=== PATIENT | female | born 1975 | race Caucasian/White ===

== ENCOUNTER 2017-03-01 10:54 | Emergency (ER) | payer OTHER ==
--- NOTE | 2017-03-01 12:24 | C.PDOC ---
History Of Present Illness 41 year old female was brought to the ED by EMS with complaints of right sided neck pain and left knee pain, status post slipping and falling at work one hour prior to arrival. Patient was walking after the incident and denies head trauma , weakness, numbness, or urinary symptoms. Time Seen by Provider: 03/01/17 11:26 Chief Complaint (Nursing): Lower Extremity Problem/Injury History Per: Patient History/Exam Limitations: no limitations Onset/Duration Of Symptoms: Hrs (1 hour [employer]) Current Symptoms Are (Timing): Still Present Quality Of Discomfort: "Pain" Previous Symptoms: None Associated Symptoms: None Exacerbating Factor(s): Movement Recent travel outside of the [place]: No Additional History Per: EMS Past Medical History Reviewed: Historical Data, Nursing Documentation, Vital Signs Vital Signs: Last Vital Signs Temp 97.5 F L 03/01/17 13:00 Pulse 97 H 03/01/17 13:00 Resp 18 03/01/17 13:00 BP 132/84 03/01/17 13:00 Pulse Ox 96 03/01/17 13:11 Family History: States: Unknown Family Hx - Social History Hx Tobacco Use: No Hx Alcohol Use: No Hx Substance Use: No - Immunization History Hx Tetanus Toxoid Vaccination: No Hx Influenza Vaccination: No Hx Pneumococcal Vaccination: No Review Of Systems Constitutional: Negative for: Fever Genitourinary: Negative for: Dysuria, Incontinence Musculoskeletal: Positive for: Neck Pain (right sided neck pain ), Leg Pain ( left knee pain ) Neurological: Negative for: Weakness, Numbness Physical Exam - Physical Exam Appears: Non-toxic, No Acute Distress Skin: Warm, Dry, No Rash Head: Atraumatic, Normacephalic Eye(s): bilateral: Normal Inspection, PERRL, EOMI Oral Mucosa: Moist Neck: No Midline Cervical Tenderness, Paracervical Tenderness (right paracervical tenderness ), Supple Chest: Symmetrical, No Tenderness Cardiovascular: Rhythm Regular, No Murmur Respiratory: No Rales, No Rhonchi, No Wheezing, Other (clear to auscultation bilaterally ) Back: No CVA Tenderness, No Vertebral Tenderness, No Paraspinal Tenderness Extremity: Normal ROM, Tenderness (left knee anterior tenderness ), No Calf Tenderness, Capillary Refill (good capillary refill, less than two seconds ), No Deformity, No Swelling Neurological/Psych: Oriented x3, Normal Motor, Normal Sensation Gait: Steady ED Course And Treatment O2 Sat by Pulse Oximetry: 96 (RA ) Pulse Ox Interpretation: Normal - Other Rad Left knee X-ray X-Ray: Viewed By Me, Read By Radiologist Interpretation: Negative. - CT Scan/US Cervical CT Other Rad Studies (CT/US): Read By Radiologist, Radiology Report Reviewed CT/US Interpretation: FINDINGS: VERTEBRAE: Vertebral bodies maintained in height. The transverse processes and posterior elements are intact. Normal alignment is maintained. There is straightening of the normal lordotic curvature indicating possible muscular spasm. Please correlate. The atlantoaxial articulation and odontoid process are intact. DISCS/SPINAL CANAL/ NEURAL FORAMINA: There is narrowing of the C5-6 intervertebral disc space with a disc/ ridge complex and moderate central spinal stenosis. There is moderate/ severe neural foraminal stenosis bilaterally at C5-6. The remaining intervertebral disc spaces are maintained in height. PARASPINAL SOFT TISSUES: Unremarkable. OTHER FINDINGS: None. IMPRESSION: No evidence of fracture or dislocation. Possible muscular spasm. Degenerative disc disease at C5-6 with disc/ridge complex and moderate central spinal stenosis as well as moderate/ severe bilateral neural foraminal stenosis. Progress Note: Cervical CT scan and left knee X-Ray was ordered. Patient was given Motrin. Medical Decision Making Medical Decision Making: On re-exam, the patient reports improvement of symptoms. Abdomen is soft, non- tender and patient is tolerating PO well. Lungs are CTA, heart is RRR. Ambulatory in the ED with steady gait. Follow up with the medical doctor within 1-2 days. Return if worsened. Disposition - Disposition Referrals: Martir Lane MD [Staff Provider] - Disposition: HOME/ ROUTINE Disposition Time: 12:44 Condition: GOOD Additional Instructions: Follow up with the medical doctor within 1-2 days. Return if worsened. Prescriptions: Cyclobenzaprine [Cyclobenzaprine HCl] 10 mg PO BID #14 tab Naproxen [Naprosyn] 500 mg PO BID #20 tab Instructions: Cervical Strain (DC), Knee Sprain (ED) Forms: [employer] (Eritrean), Work Excuse Print Language: SAMMARINESE - Clinical Impression Clinical Impression: Knee sprain, Cervical strain - PA / ARMATURE CONNECTOR / Resident Statement MD/DO has reviewed & agrees with the documentation as recorded. - Scribe Statement The provider has reviewed the documentation as recorded by the Scribe Talisha Blount All medical record entries made by the Waylon were at my direction and personally dictated by me. I have reviewed the chart and agree that the record accurately reflects my personal performance of the history, physical exam, medical decision making, and the department course for this patient. I have also personally directed, reviewed, and agree with the discharge instructions and disposition.
--- NOTE | 2017-03-01 12:35 | CT ---
PROCEDURE: CT Cervical Spine without contrast HISTORY: Fall. Pain. COMPARISON: None available. TECHNIQUE: Axial computed tomography images were obtained of the cervical spine without the use of intravenous contrast. Coronal and sagittal reformatted images were created and reviewed. Radiation dose: Total exam DLP = 461.98 mGy-cm. This CT exam was performed using one or more of the following dose reduction techniques: Automated exposure control, adjustment of the mA and/or kV according to patient size, and/or use of iterative reconstruction technique. FINDINGS: VERTEBRAE: Vertebral bodies maintained in height. The transverse processes and posterior elements are intact. Normal alignment is maintained. There is straightening of the normal lordotic curvature indicating possible muscular spasm. Please correlate. The atlantoaxial articulation and odontoid process are intact. DISCS/SPINAL CANAL/NEURAL FORAMINA: There is narrowing of the C5-6 intervertebral disc space with a disc/ ridge complex and moderate central spinal stenosis. There is moderate/severe neural foraminal stenosis bilaterally at C5-6. The remaining intervertebral disc spaces are maintained in height. PARASPINAL SOFT TISSUES: Unremarkable. OTHER FINDINGS: None. IMPRESSION: No evidence of fracture or dislocation. Possible muscular spasm. Degenerative disc disease at C5-6 with disc/ridge complex and moderate central spinal stenosis as well as moderate/severe bilateral neural foraminal stenosis.
[2017-03-01 13:04] VITALS: BP 132/84; PULSE 97; RESP 18; TEMP 97.5
[2017-03-01 13:12] VITALS: O2SAT 96
--- NOTE | 2017-03-01 13:47 | RAD ---
PROCEDURE: Left Knee Radiographs. HISTORY: Pain. COMPARISON: None. FINDINGS: BONES: Normal. No fracture. JOINTS: Limited medial femorotibial compartment joint space narrowing is appreciate compatible with limited degenerative joint disease. JOINT EFFUSION: None. OTHER FINDINGS: None. IMPRESSION: No acute fracture, dislocation or destructive bony lesion appreciated. Limited degenerative joint disease is identified as discussed above.
== END 2017-03-01 13:05 | disposition home or self-care (01) ==
LOC: C.ER 10:54
DX: S16.1XXA Strain of muscle, fascia and tendon at neck level, initial encounter (principal); S83.92XA Sprain of unspecified site of left knee, initial encounter; W01.0XXA Fall on same level from slipping, tripping and stumbling without subsequent striking against object, initial encounter; Y93.01 Activity, walking, marching and hiking; Y92.89 Other specified places as the place of occurrence of the external cause; Y99.0 Civilian activity done for income or pay

== ENCOUNTER 2017-10-16 10:04 | Emergency (ER) | payer OTHER ==
[2017-10-16 10:12] VITALS: BP 123/84; PULSE 87; RESP 18; TEMP 98.7; O2SAT 100
[2017-10-16] MEDS ORDERED: Naproxen 550 mg Tab PO STA (11:25)
--- NOTE | 2017-10-16 11:27 | C.PDOC ---
History Of Present Illness 42-year-old female presents to the emergency department with complaints of a sore throat and right ear pain that started one week ago. Patient denies rash, nausea/vomiting, neck pain, recent travel or sick contacts. Time Seen by Provider: 10/16/17 10:19 Chief Complaint (Nursing): ENT Problem History Per: Patient History/Exam Limitations: None Current Symptoms Are (Timing): Still Present Symptoms Have Been: Continuous Severity: Mild Past Medical History Reviewed: Historical Data, Nursing Documentation, Vital Signs Vital Signs: Last Vital Signs Temp 98.7 F 10/16/17 10:10 Pulse 87 10/16/17 10:10 Resp 18 10/16/17 10:10 BP 123/84 10/16/17 10:10 Pulse Ox 100 10/16/17 22:03 - Medical History PMH: No Chronic Diseases Family History: States: No Known Family Hx - Social History Hx Tobacco Use: No Hx Alcohol Use: No Hx Substance Use: No - Immunization History Hx Tetanus Toxoid Vaccination: No Hx Influenza Vaccination: No Hx Pneumococcal Vaccination: No Review Of Systems Constitutional: Negative for: Fever, Chills ENT: Positive for: Ear Pain, Throat Pain. Negative for: Ear Discharge, Nose Discharge, Nose Congestion, Throat Swelling Respiratory: Negative for: Cough, Shortness of Breath, Sputum Gastrointestinal: Negative for: Nausea, Vomiting Skin: Negative for: Rash Physical Exam - Physical Exam Appears: Well, Non-toxic, No Acute Distress, Other (hoarse voice) Skin: Normal Color, Warm, Dry, No Rash Head: Normacephalic Eye(s): bilateral: Normal Inspection Ear(s): Left: Normal, Right: TM Erythema (bulging TM) Oral Mucosa: Moist Throat: Normal, No Erythema, No Exudate Neck: Supple Cardiovascular: Rhythm Regular Respiratory: Normal Breath Sounds, No Rales, No Rhonchi, No Wheezing Extremity: Normal ROM Neurological/Psych: Oriented x3 ED Course And Treatment O2 Sat by Pulse Oximetry: 100 (RA) Pulse Ox Interpretation: Normal Progress Note: Patient given PO Naprosyn. She is already on PO amoxicillin, was instructed to continue antibiotic. She was given Rxs for chloraseptic spray and Naprosyn, and was instructed to follow up with PMD/clinic in 1-2 days. She understands she should return to ED if symptoms worsen. Disposition Counseled Patient/Family Regarding: Studies Performed, Diagnosis, Need For Followup, Rx Given - Disposition Referrals: [facility] [Outside] Disposition: HOME/ ROUTINE Disposition Time: 11:25 Condition: STABLE Additional Instructions: CONTINUE YOUR AMOXICILLIN 500MG TWICE A DAY FOR 1 WEEK USE MEDICATIONS DIRECTED DRINK PLENTY OF FLUIDS RETURN TO EMERGENCY ROOM IF SYMPTOMS WORSEN CONTINE ALEX AMOXICILINA 500MG DOS VECES AL DA POR 1 SEMANA USE MEDICAMENTOS SEGN LO INDICADO BEBER MUCHO LQUIDO REGRESE AL ARI DE EMERGENCIA SI LOS SNTOMAS EMPEORAN Prescriptions: Naproxen 375 mg PO BID PRN #20 tablet PRN Reason: pain Phenol/Glycerin [Chloraseptic Max Fult[place]] 1 spray MM Q6 PRN #1 spray PRN Reason: THROAT PAIN Instructions: Ear Infections (Otitis Media) (DC) Forms: [employer] (Namibian) Print Language: KISWAHILI - Clinical Impression Clinical Impression: Right otitis media, Hoarseness of voice - Scribe Statement The provider has reviewed the documentation as recorded by the Scribe Holguin (Zunaira Ashraf) All medical record entries made by the Scribe were at my direction and personally dictated by me. I have reviewed the chart and agree that the record accurately reflects my personal performance of the history, physical exam, medical decision making, and the department course for this patient. I have also personally directed, reviewed, and agree with the discharge instructions and disposition.
[2017-10-16] MEDS ORDERED: Naproxen 550 mg Tab PO ONE (11:42)
== END 2017-10-16 11:58 | disposition home or self-care (01) ==
LOC: C.ER 10:04
DX: H66.91 Otitis media, unspecified, right ear (principal); R49.0 Dysphonia